=== PATIENT | male | born 2000 | race Two or more races ===

== ENCOUNTER 2023-09-14 23:21 | Emergency (ER) | payer MEDICAID ==
[~2023-09-14] VITALS: Ht 172.7 cm; Wt 74.8 kg
[2023-09-14] MEDS: IBUPROFEN 600 MG TABLET PO ONE (23:42)
[2023-09-14] MEDS ORDERED: HYDROCODONE/APAP 5/325MG TABLET ONE (23:42)
[2023-09-14] MEDS ORDERED: IBUPROFEN 600 MG TABLET ONE (23:42)
[2023-09-14] MEDS: HYDROCODONE/APAP 5/325MG TABLET PO ONE (23:43)
[2023-09-15] MEDS ORDERED: HYDR-4303 PO (01:06)
[2023-09-15] MEDS ORDERED: IBUP-1953 PO (01:06)
[2023-09-15 01:14] VITALS: BP 128/83; TEMP 98; O2SAT 99
== END 2023-09-15 01:14 | disposition home or self-care (01) ==
LOC: ER 23:33
DX: S42.002A Fracture of unspecified part of left clavicle, initial encounter for closed fracture (principal); W22.8XXA Striking against or struck by other objects, initial encounter; Y93.89 Activity, other specified; Y92.89 Other specified places as the place of occurrence of the external cause; Y99.8 Other external cause status
CPT/HCPCS: 73000-TC